=== PATIENT | male | born 1970 | race African-American/Black ===

== ENCOUNTER 2017-07-05 08:12 | Emergency (ER) | payer OTHER ==
[2017-07-05] MEDS: LORAZEPAM 2 MG INJ IV (09:01)
[2017-07-05 09:12] LABS: ADD MAN DIFF? NO
[2017-07-05 09:18] LABS: WHITE BLOOD COUNT 6.9 10^3/ul (4.8-10.8)
[2017-07-05 09:18] LABS: BASOPHILS % 0.3 % (0.0-2.0); EOSINOPHILS # 0.1 10^3/ul (0.0-0.5); HEMATOCRIT 38.8 % (42.0-52.0); HEMOGLOBIN 13.5 g/dl (14.0-18.0); LYMPHOCYTES # 1.1 10^3/ul (0.8-2.9); LYMPHOCYTES % 16.1 % (15.0-51.0); MEAN CORPUSCULAR HEMOGLOBIN 30.4 pg (29.0-33.0); MEAN CORPUSCULAR HGB CONC 34.8 g/dl (32.0-37.0); MEAN CORPUSCULAR VOLUME 87.4 fl (82.0-101.0); MEAN PLATELET VOLUME 10.2 fl (7.4-10.4); MONOCYTE # 0.4 10^3/ul (0.3-0.9); MONOCYTES % 5.1 % (0.0-11.0); NEUTROPHIL # 5.3 10^3/ul (1.6-7.5); NEUTROPHILS % 76.9 % (39.0-77.0); PLATELET COUNT 231 10^3/UL (140-415); RED BLOOD COUNT 4.44 10^6/ul (4.70-6.10); RED CELL DISTRIBUTION WIDTH 12.4 % (11.5-14.5)
[2017-07-05 09:35] LABS: ANION GAP 20 (8-16); BLOOD UREA NITROGEN 11 mg/dl (7-20); CALCIUM 8.8 mg/dl (8.4-10.2); CARBON DIOXIDE 27 mmol/L (21-31); CHLORIDE 100 mmol/L (97-110); GLUCOSE 201 mg/dl (70-220); POTASSIUM 3.4 mmol/L (3.5-5.1); SODIUM 144 mmol/L (135-144)
[2017-07-05 09:40] LABS: ETHANOL < 10.0 mg/dl
[2017-07-05 09:46] LABS: INR 1.02; PROTIME 13.5 Sec (11.9-14.9); PT RATIO 1.1
[2017-07-05 09:47] LABS: PARTIAL THROMBOPLASTIN TIME 26.2 Sec (25.0-35.0)
[2017-07-05 09:50] LABS: TROPONIN-I < 0.012 ng/ml (0.00-0.12)
[2017-07-05 10:01] LABS: AMPHETAMINE/METHAMPHETAMINE Negative (NEGATIVE); CANNABINOIDS Positive (NEGATIVE)
[2017-07-05 10:02] LABS: BARBITURATES Negative (NEGATIVE)
[2017-07-05 10:03] LABS: BENZODIAZEPINES Negative (NEGATIVE); COCAINE Negative (NEGATIVE); OPIATES Negative (NEGATIVE)
== END 2017-07-05 12:56 | disposition home or self-care (01) ==
LOC: E/R 12:56
DX: R56.9 Unspecified convulsions (principal); J44.9 Chronic obstructive pulmonary disease, unspecified; F17.210 Nicotine dependence, cigarettes, uncomplicated; R07.9 Chest pain, unspecified; R40.2252 Coma scale, best verbal response, oriented, at arrival to emergency department; R40.2142 Coma scale, eyes open, spontaneous, at arrival to emergency department; R40.2362 Coma scale, best motor response, obeys commands, at arrival to emergency department
CPT/HCPCS: 36415; 70450; 71045; 73080-RT; 80048; 80306; 80307; 82962; 84484; 85025; 85610; 85730; 93005; 96374; 99285-25